=== PATIENT | female | born 1975 | race Caucasian/White ===

== ENCOUNTER 2020-11-01 09:11 | Outpatient (CLI) | payer OTHER | END 2020-11-01 21:28 | disposition home or self-care (01) | LOC: SRD 09:11 | PROVIDERS: ATTEND Specialist | DX: N92.6 Irregular menstruation, unspecified (principal) | CPT/HCPCS: 58340; 74740; C1751; Q9967 ==

== ENCOUNTER 2022-05-05 13:36 | Emergency (ER) | payer OTHER ==
[~2022-05-05] VITALS: Ht 154.9 cm; Wt 65.8 kg
[2022-05-05 13:43] VITALS: BP_SYST 160
--- NOTE | 2022-05-05 13:53 | NUR ---
Pt brought by self, A&Ox4, pt presents to ER with R lower abdominal pain and nausea since yesterday, skin pink and warm, cap refill <3, VSS, will cont to monitor.
[2022-05-05 14:24] LABS: BILIRUBIN,URINE NEGATIVE (NEGATIVE); BLOOD, URINE 3+ (NEGATIVE); CLARITY/URINE SL CLOUDY (CLEAR); COLOR,URINE YELLOW (YELLOW); GLUCOSE,URINE NEGATIVE (NEGATIVE); KETONES,URINE NEGATIVE (NEGATIVE); LEUKOCYTE ESTERASE ,URINE 2+ (NEGATIVE); NITRITE, URINE POSITIVE (NEGATIVE); PROTEIN URINE TRACE (NEGATIVE); UROBILINOGEN,URINE 0.2 (0.2-1.0)
--- NOTE | 2022-05-05 14:31 | NUR ---
Patient to ER bed 06 to gown for evaluation. Side rails up.
[2022-05-05 14:45] LABS: BACTERIA,URINE MODERATE /HPF (None Seen); WBC,URINE 50-80 /HPF (0-3)
--- NOTE | 2022-05-05 14:45 | NUR ---
PT STATES RIGHT LOWER QUADRANT CONSTANT PAIN, SOME NAUSEA OFF AND ON. STATES PAIN IS 8/10. SPOUSE AT BEDSIDE FOR SUPPORT
[2022-05-05 14:46] LABS: MUCUS,URINE 1+ /LPF (None Seen)
[2022-05-05] MEDS ORDERED: KETOROLAC TROMETHAMINE 30 MG VIAL IVP ONE (15:30)
[2022-05-05] MEDS ORDERED: NACL 0.9% 1,000 ML IV ONE (15:30)
[2022-05-05] MEDS ORDERED: ONDANSETRON HCL 4 MG/2 ML VIAL IVP ONE (15:30)
[2022-05-05] MEDS ORDERED: fentaNYL CITRATE/PF 100 MCG/2 ML AMP IVP ONE (15:30)
--- NOTE | 2022-05-05 15:30 | NUR ---
HEPLOCK STARTED AND LABS DRAWN, CT CONSTENT SIGNED.
[2022-05-05] MEDS ORDERED: iohexoL 350 mgI/mL, 100 ML INFUS..BTL IV ONE (15:33)
[2022-05-05 15:42] LABS: BASOPHILS % (AUTO) 0.5 % (0.0-2.0); EOSINOPHILS # (AUTO) 0.3 K/uL (0.0-0.4); EOSINOPHILS % (AUTO) 2.8 % (0.0-4.0); HEMATOCRIT 36.3 % (36-48); LYMPHOCYTES # (AUTO) 2.8 K/uL (1.0-5.5); MEAN CORPUSCULAR HEMOGLOBIN 28 pg (27-31); MEAN CORPUSCULAR HGB CONC 33 % (32-36); MEAN CORPUSCULAR VOLUME 86 fL (79.0-98.0); MONOCYTES # (AUTO) 0.7 K/uL (0.0-1.0); MONOCYTES % (AUTO) 6.9 % (1.7-9.3); NEUTROPHILS # (AUTO) 6.8 K/uL (1.8-7.7); NEUTROPHILS % (AUTO) 63.8 % (40.0-70.0); PLATELET COUNT (AUTO) 274 K/uL (130-430); RED BLOOD CELL COUNT(AUTO) 4.24 MIL/uL (4.2-6.2); RED CELL DISTRIBUTION WIDTH 16.5 % (9.0-15.0); WHITE BLOOD COUNT (AUTO) 10.6 K/uL (4.8-10.8)
[2022-05-05 15:53] LABS: CALCIUM 8.9 mg/dL (8.4-11.0); CREATININE 0.61 mg/dL (0.55-1.30)
[2022-05-05 15:57] LABS: ALBUMIN 3.9 g/dL (3.4-4.8); TOTAL BILIRUBIN 0.3 mg/dL (0.0-1.0)
--- NOTE | 2022-05-05 16:08 | NUR ---
TAKEN TO RADIOLOGY VIA JULIEN
[2022-05-05] MEDS ORDERED: cefTRIAXone 1 GM in D5W 50 ML IV ONE (16:45)
--- NOTE | 2022-05-05 17:10 | NUR ---
NO CHANGES, RESTING QUIETLY. SPOUSE AT BEDSIDE FOR SUPPORT
[2022-05-05] MEDS ORDERED: cefTRIAXone 1 GM VIAL ONE (17:55)
[2022-05-05] MEDS ORDERED: KETOROLAC TROMETHAMINE 30 MG VIAL ONE (17:56)
[2022-05-05] MEDS ORDERED: ONDANSETRON HCL 4 MG/2 ML VIAL ONE (17:58)
--- NOTE | 2022-05-05 18:20 | NUR ---
PT UP TO RESTROOM WITH STEADY GAIT, RETURNED TO BED SAFELY.
[2022-05-05 18:40] VITALS: BP_SYST 131
[2022-05-05] MEDS ORDERED: CEPH-548 PO (19:02)
[2022-05-05] MEDS ORDERED: IBUP-1969 PO (19:03)
--- NOTE | 2022-05-05 19:15 | NUR ---
Patient given written and verbal discharge instructions and verbalizes understanding. ER MD discussed with patient the results and treatment provided. Patient in stable condition. ID arm band removed. IV catheter removed intact and dressing applied, no active bleeding. Rx of CEPHALEXIN, IBUPROFEN given. Patient educated on pain management and to follow up with PMD. Pain Scale 0/10. Opportunity for questions provided and answered. Medication side effect fact sheet provided.
== END 2022-05-05 19:15 | disposition home or self-care (01) ==
LOC: SED 13:36
DX: N39.0 Urinary tract infection, site not specified (principal); R10.31 Right lower quadrant pain; R11.0 Nausea; Z79.899 Other long term (current) drug therapy
CPT/HCPCS: 99285; 74177; 96365; 96375; 96361; 80053; 81000; 83690; 85025; 87086; 36415; 76376; 81025; Q9967; J0696; J1885; J2405; J7030